=== PATIENT | female | born 1930 | race Caucasian/White ===

== ENCOUNTER → 2016-09-16 | Outpatient (REF) ==
[~2016-09-16] MED LIST: ANTIVERT 25MG25 MG; AQUAPHOR1 OI1 TP; LOVENOX 4040 MG/0.4 SQ; MORPHINE 10M10 MG/ML IV; PREDNISONE 5MG5 MG; TORADOL30 MG/ML IV; TYLENOL 325MG325 MG PO; VALIUM 2MG T2 MG/TAB PO; ZOFRAN INJ4 MG/2 ML IV
== END ==
LOC: ZLAB.WCH 11:52
DX: Z01.89 Encounter for other specified special examinations (principal)

== ENCOUNTER → 2016-10-18 | Outpatient (REF) | LOC: ZLAB.WCH 10:37 | DX: Z01.89 Encounter for other specified special examinations (principal) ==